=== PATIENT | male | born 1975 | race Caucasian/White ===

== ENCOUNTER 2020-03-18 10:58 | Emergency (ER) | payer SELFPAY ==
[~2020-03-18] VITALS: Ht 165.1 cm; Wt 86.2 kg
--- NOTE | 2020-03-18 11:01 | NUR ---
PT AMBULATED TO BED 12, STEADY GAIT.
--- NOTE | 2020-03-18 11:04 | NUR ---
PT PLACED ON 3 LEAD ECG AND PULSE OX.
--- NOTE | 2020-03-18 11:05 | NUR ---
DR. MAHMOOD MADE AWARE OF PTS BP.
[2020-03-18 11:10] VITALS: BP 240/137
--- NOTE | 2020-03-18 11:19 | NUR ---
DR. MAHMOOD AT BEDSIDE.
[2020-03-18] MEDS ORDERED: cloNIDine 0.1 MG TAB PO ONE (11:25)
[2020-03-18] MEDS ORDERED: ENALAPRILAT 2.5 MG/2 ML VIAL IVP ONE ×2 (11:25→12:35)
--- NOTE | 2020-03-18 11:25 | NUR ---
44 Y/M PT SEEN AT PCP FOR FOLLOW UP AND WAS SENT TO ED TO FOLLOW UP FOR HTN AND ABNORMAL EKG. PT DENIES CP, SOB, OR HEADACHE. PT HYPERTENSIVE AT 240/137. PT REPORTS HE HAS NOT TAKEN CLONIDINE X 1 WEEK AND WAS AT HIS PCP FOR A REFILL. PT DENIES N/V/D/F/ OR BLURRED VISION. PMH-HTN RX- ASA, HCTZ, CLONIDINE, LISINOPRIL ALLERGIES- PENICILLIN
[2020-03-18 11:37] LABS: BASOPHILS % (AUTO) 0.5 % (0.0-2.0); EOSINOPHILS # (AUTO) 0.1 K/uL (0-0.4); EOSINOPHILS % (AUTO) 0.9 % (0.0-4.0); HEMATOCRIT 44.4 % (36-52); HEMOGLOBIN 15.1 g/dL (12.0-18.0); LYMPHOCYTES # (AUTO) 1.8 K/uL (2.0-11.5); MEAN CORPUSCULAR HEMOGLOBIN 29 pg (27-31); MEAN CORPUSCULAR HGB CONC 34 g/dL (33-37); MEAN CORPUSCULAR VOLUME 85.5 fL (80-94); MONOCYTES # (AUTO) 0.6 K/uL (0.8-1.0); MONOCYTES % (AUTO) 8.3 % (1.7-9.3); NEUTROPHILS # (AUTO) 4.8 K/uL (1.8-7.7); NEUTROPHILS % (AUTO) 65.3 % (42.2-75.2); PLATELET COUNT (AUTO) 308 K/uL (140-450); RED BLOOD CELL COUNT(AUTO) 5.19 MIL/uL (4.20-6.10); RED CELL DISTRIBUTION WIDTH 14.3 % (11.6-13.7); WHITE BLOOD COUNT (AUTO) 7.3 K/uL (4.8-10.8)
--- NOTE | 2020-03-18 11:57 | NUR ---
XR AT BEDSIDE.
[2020-03-18 12:16] LABS: ANION GAP 12.2 (8-16); CREATININE 1.1 mg/dL (0.6-1.3); POTASSIUM 3.2 mmol/L (3.5-5.1); THYROID STIMULATING HORMONE 2.77 uIU/mL (0.34-3.74); TOTAL BILIRUBIN 0.6 mg/dL (0.0-1.0)
[2020-03-18 12:25] LABS: APPEARANCE,URINE CLEAR (CLEAR); BILIRUBIN,URINE NEGATIVE (NEGATIVE); BLOOD, URINE NEGATIVE (NEGATIVE); COLOR,URINE YELLOW (YELLOW); LEUKOCYTE ESTERASE ,URINE NEGATIVE (NEGATIVE); NITRITE, URINE NEGATIVE (NEGATIVE); PH,URINE 6.5 (5.0-9.0); UGLUCOSE NEGATIVE (NEGATIVE)
[2020-03-18 14:01] VITALS: BP 159/117
--- NOTE | 2020-03-18 14:01 | NUR ---
Patient discharged with v/s stable. Written and verbal after care instructions given and explained. Patient alert, oriented and verbalized understanding of instructions. Ambulatory with steady gait. All questions addressed prior to discharge. ID band removed. Patient advised to follow up with PMD. Rx of ASA, HCTZ, CLONIDINE, LISINOPRIL given. Patient educated on indication of medication including possible reaction and side effects. Opportunity to ask questions provided and answered.
== END 2020-03-18 14:01 | disposition home or self-care (01) ==
LOC: MED 10:58
DX: I16.0 Hypertensive urgency (principal); Z88.0 Allergy status to penicillin
CPT/HCPCS: 36415; 71045; 80053; 81003; 84443; 84484; 85025; 93005; 96374; 96376; 99285; J3490; Q0092